=== PATIENT | male | born 1950 | race African-American/Black ===

== ENCOUNTER 2017-06-06 13:17 | Inpatient (IN) | payer OTHER ==
[2017-06-06 16:16] VITALS: BMI 20.7
--- NOTE | 2017-06-06 16:50 | HP ---
CIWA Score - CIWA Score Nausea/Vomitin Muscle Tremors: 3 Anxiety: 3 Agitation: 3 Paroxysmal Sweats: 1-Minimal Palms Moist Orientation: 0-Oriented Tacttile Disturbances: 2-Mild Itch/Numbness/Burn Auditory Disturbances: 2-Mild Harshness/Frighten Visual Disturbances: 1-Very Mild Sensitivity Headache: 2-Mild CIWA-Ar Total Score: 20 Admission ROS BHS - HPI Chief Complaint: I NEED HELP FROM ALCOHOL,XANAX AND COCAINE DEPENDENCE Allergies/Adverse Reactions: Allergies Allergy/AdvReac Type Severity Reaction Status Date / Time banana Allergy Severe Swelling Verified 06/06/17 16:26 History of Present Illness: THIS 67 YEARS OLD WITH ALCOHOL,COCAINE AND XANAX DEPENDENCE,SEEKING DETOX,LAST TREATMENT [facility] 03/19 MULTIPLE MEDICAL PROBLEMS TYPE 2 DM,HTN,HEPATITIS C TREATED, S/P LEFT INGUINAL HERNIA REPAIR LONGEST PERIOD OF SOBRIETY 10 YEARS - Ebola screening Have you traveled outside of the country in the last 21 days: No Have you had contact with anyone from an Ebola affected area: No Have you been sick,other than usual withdrawal symptoms: No Do you have a fever: No - Review of Systems Constitutional: Loss of Appetite, Malaise, Night Sweats, Changes in sleep, Weakness, Unintentional Wgt. Loss EENT: reports: Tearing, Nose Congestion Respiratory: reports: No Symptoms reported Cardiac: reports: No Symptoms Reported GI: reports: Diarrhea, Nausea, Vomiting, Abdominal cramping Musculoskeletal: reports: Back Pain, Muscle Pain Integumentary: reports: Dryness Neuro: reports: Headache, Tremors Endocrine: reports: No Symptoms Reported Hematology: reports: No Symptoms Reported Psychiatric: reports: No Sypmtoms Reported, Judgement Intact, Mood/Affect Appropiate, Orientated x3, Depressed Patient History - Patient Medical History Hx Anemia: No Hx Asthma: No Hx Chronic Obstructive Pulmonary Disease (COPD): No Hx Cancer: No Hx Cardiac Disorders: No Hx Hypertension: Yes (on meds.) Hx Hypercholesterolemia: No Hx Pacemaker: No HX Cerebrovascular Accident: No Hx Seizures: No Hx Diabetes: Yes (Type II) Hx Gastrointestinal Disorders: No Hx Liver Disease: No Hx Genitourinary Disorders: No Hx Sexually Transmitted Disorders: No Hx Renal Disease (ESRD): No Hx Thyroid Disease: No Hx Human Immunodeficiency Virus (HIV): No (LAST 03/19 NEGATIVE) Hx Hepatitis C: Yes (TREATED) Hx Depression: Yes Hx Suicide Attempt: No Hx Bipolar Disorder: No Hx Schizophrenia: No Other Medical History: N SUICIAL,NO HMICIDAL - Patient Surgical History Past Surgical History: Yes Hx Abdominal Surgery: Yes Other Surgical History: LEFT inguinal hernia repair 2004 - PPD History Previous Implant?: Yes Documented Results: Positive w/o proof Implanted On Prior [facility] Admission?: No PPD to be Administered?: No - Smoking Cessation Smoking history: Current every day smoker Have you smoked in the past 12 months: Yes Aproximately how many cigarettes per day: 5 Hx Chewing Tobacco Use: No Initiated information on smoking cessation: Yes 'Breaking Loose' booklet given: 06/06/17 - Substance & Tx. History Hx Alcohol Use: Yes Hx Substance Use: Yes Substance Use Type: Alcohol, Cocaine Hx Substance Use Treatment: Yes (JULEE NOYOLA 03/19) - Substances Abused Alcohol Route: Oral Frequency: Daily Amount used: 6pk beer Age of first use: 29 Date of Last Use: 06/05/17 Alprazolam (Xanax) Route: Oral Frequency: Daily Amount used: 6mg Age of first use: 54 Date of Last Use: 06/06/17 Crack Route: Smoking Frequency: Daily Amount used: $60 Age of first use: 62 Date of Last Use: 06/05/17 Family Disease History - Family Disease History Family Disease History: Other: Father (ALCOHOL ), Mother (), Sister (ALCOHOL,) Admission Physical Exam S - Vital Signs Vital Signs: Vital Signs - 24 hr 06/06/17 16:14 Temperature 96.2 F L Pulse Rate 59 L Respiratory 20 Rate Blood Pressure 101/60 - Physical General Appearance: Yes: Moderate Distress, Tremorous, Irritable, Sweating, Anxious HEENTM: Yes: Normal ENT Inspection, SANDOVAL, Pharynx Normal Respiratory: Yes: Lungs Clear, Normal Breath Sounds, No Respiratory Distress Neck: Yes: Within Normal Limits, Supple, Trachea in good position Breast: Yes: Within Normal Limits Cardiology: Yes: Within Normal Limits, Regular Rhythm, Regular Rate, S1, S2 Abdominal: Yes: Normal Bowel Sounds, Non Tender, Flat, Soft, Surgical Scar ( SCAR LEFT INGUINAL HERNIA) Genitourinary: Yes: Within Normal Limits Back: Yes: Muscle Spasm Musculoskeletal: Yes: full range of Motion, Back pain, Muscle Pain Extremities: Yes: Tremors Neurological: Yes: 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 intact, Fully Oriented, Alert, Motor Strength 5/5 Integumentary: Yes: Dry Lymphatic: Yes: Within Normal Limits - Diagnostic (1) Alcohol dependence with uncomplicated withdrawal Current Visit: Yes Status: Acute (2) Cocaine dependence Current Visit: Yes Status: Chronic (3) Uncomplicated sedative, hypnotic or anxiolytic withdrawal Current Visit: Yes Status: Acute (4) Methadone maintenance therapy patient Current Visit: Yes Status: Chronic (5) S/P left inguinal hernia repair Current Visit: Yes Status: Resolved (6) Depression Current Visit: Yes Status: Acute (7) Weight loss Current Visit: Yes Status: Acute Cleared for Admission [facility] - Detox or Rehab [facility] Level of Care: Medically Managed Detox Regimen/Protocol: Librium [facility] Breath Alcohol Content Breath Alcohol Content: 0 Urine Drug Screen - Results Drug Screen Negative: No Urine Drug Screen Results: [place]-Cocaine, OPI-Opiates, BZO-Benzodiazepines, MTD- Methadone
[2017-06-06] MEDS ORDERED: P-EPHED 60MG/TRIPROLIDI 2.5MG TABLET PO PRN (17:01)
[2017-06-06] MEDS ORDERED: LOPERAMIDE HCL 2 MG CAPSULE PO PRN (17:01)
[2017-06-06] MEDS ORDERED: MAGNESIUM CITRATE 300 ML BOTTLE PO PRN (17:01)
[2017-06-06] MEDS ORDERED: MENTHOL/PHENOL 1 EACH UD MM PRN (17:01)
[2017-06-06] MEDS ORDERED: MAGNESIUM HYDROX 2400MG/30ML ORAL SUSPENSION 30 ML CUP PO PRN (17:01)
[2017-06-06] MEDS ORDERED: guaiFENesin/D-METHORPHAN HB 10 ML UNIT-DOSE CUPS PO PRN (17:01)
[2017-06-06] MEDS ORDERED: NICOTINE POLACRILEX 2 MG GUM BUC PRN (17:01)
[2017-06-06] MEDS ORDERED: diazePAM 5 MG TABLET PO PRN (17:01)
[2017-06-06] MEDS ORDERED: MAG HYDROX/AL HYDROX/SIMETH 30 ML UNIT-DOSE CUP PO PRN (17:01)
[2017-06-06] MEDS ORDERED: hydrOXYzine PAMOATE 50 MG CAPSULE (FP) PO PRN (17:01)
[2017-06-06] MEDS ORDERED: diazePAM 5 MG TABLET PO ONE (18:30)
[2017-06-06 21:03] LABS: URINE APPEARANCE CLEAR; URINE BILIRUBIN NEGATIVE (NEGATIVE); URINE BLOOD NEGATIVE (NEGATIVE); URINE COLOR YELLOW; URINE GLUCOSE (UA) NEGATIVE (NEGATIVE); URINE KETONE NEGATIVE (NEGATIVE); URINE LEUK ESTERASE TRACE (NEGATIVE); URINE NITRITE NEGATIVE (NEGATIVE); URINE PROTEIN NEGATIVE (NEGATIVE); URINE UROBILINOGEN NEGATIVE mg/dL (0.2-1.0)
[2017-06-06 21:08] LABS: URINE HYALINE CAST 3 /lpf; URINE MUCUS RARE; URINE RBC <1 /hpf (0-3); URINE WBC 2 /hpf (3-5)
[2017-06-06] MEDS: THIAMINE HCL 100 MG TABLET (FP) PO SCH (22:14)
[2017-06-06] MEDS: diazePAM 5 MG TABLET PO SCH (22:14)
[2017-06-07] MEDS: diazePAM 5 MG TABLET PO SCH ×3 (05:15→22:09)
[2017-06-07] MEDS ORDERED: metFORMIN HCL 500 MG TABLET (FP) PO SCH (07:00)
[2017-06-07] MEDS ORDERED: METHADONE HCL 40 MG DISPERSABLE TABLET PO SCH (08:45)
[2017-06-07] MEDS: METHADONE 120 MG, METHADONE 30 MG PO SCH (09:14)
[2017-06-07] MEDS ORDERED: METHADONE HCL 10 MG TABLET ONE (09:14)
[2017-06-07] MEDS ORDERED: METHADONE HCL 40 MG DISPERSABLE TABLET ONE (09:14)
--- NOTE | 2017-06-07 09:52 | CONSULT ---
[facility] Psychiatric Consult - Data Date of interview: 06/07/17 Admission source: [facility] Identifying data: This is 67 years old AA single male,residing alone,supported by [facility] admitted to [address] [place] [address] for Cocaine,Anxiolytic dependence.Opioid dependence on remission (MMTP 150 mg po daily). Substance Abuse History: Reports starting Xanax 1 mg po daily about 8 years ago, Cocaine /Crack since 10 years ago spending $100 daily.MMTP 150 mg po daily. Medical History: H/O left inquinal hernia repair. Psychiatric History: Denies previous psychiatric history,no psychiatric hospitalizations,no suicidal attempts.patient reports feeling depressed on and off recently since he lost his sister who from Cancer a few months ago.Patient is not willing to start antidepressants at this time.Psychotherapy provided. Physical/Sexual Abuse/Trauma History: denies Mental Status Exam - Mental Status Exam Alert and Oriented to: Time, Place, Person Cognitive Function: Grossly Intact Patient Appearance: Well Groomed Mood: Sad Affect: Mood Congruent Patient Behavior: Appropriate, Cooperative Speech Pattern: Clear Voice Loudness: Normal Thought Process: Goal Oriented Thought Disorder: Not Present Hallucinations: Denies Suicidal Ideation: Denies Homicidal Ideation: Denies Insight/Judgement: Fair Sleep: Fair Appetite: Fair Muscle strength/Tone: Normal Gait/Station: Normal Psychiatric Findings - Problem List ([place] 1, 2,3) (1) Alcohol dependence with uncomplicated withdrawal Current Visit: Yes Status: Acute (2) Cocaine dependence Current Visit: Yes Status: Chronic (3) Methadone maintenance therapy patient Current Visit: Yes Status: Chronic (4) S/P left inguinal hernia repair Current Visit: Yes Status: Resolved (5) Weight loss Current Visit: Yes Status: Acute (6) Substance induced mood disorder Current Visit: Yes Status: Chronic - Initial Treatment Plan Initial Treatment Plan: Vistaril 50 mg po prn,Benadryl 50 mg po hs. Will monitor progress.consider antidepressants if needed.
[2017-06-07] MEDS ORDERED: PATIENT'S OWN MEDICATION (NON-FORMULARY) (Metformin Hcl [Glucophage] 1,000 MG) PO SCH (10:00)
[2017-06-07] MEDS: PRENATAL VITAMINS W/ FOLIC ACID TABLET (FP) PO SCH (10:12)
[2017-06-07] MEDS: LISINOPRIL 10 MG TABLET (FP) PO SCH (10:13)
--- NOTE | 2017-06-07 10:17 | PN ---
S CIWA - CIWA Score Nausea/Vomitin Muscle Tremors: 3 Anxiety: 3 Agitation: 2 Paroxysmal Sweats: 1-Minimal Palms Moist Orientation: 0-Oriented Tacttile Disturbances: 1-Very Mild Itch/Numbness Auditory Disturbances: 1-Very Mild Visual Disturbances: 1-Very Mild Sensitivity Headache: 2-Mild CIWA-Ar Total Score: 17 BHS Progress Note (SOAP) Subjective: ALERT,IRRITABLE,ANXIOUS,INTERRUPTED SLEEP,TREMOR Objective: 06/07/17 10:11 Vital Signs Temperature 98.8 F 06/07/17 10:05 Pulse Rate 71 06/07/17 10:05 Respiratory Rate 18 06/07/17 10:05 Blood Pressure 110/58 06/07/17 10:05 O2 Sat by Pulse Oximetry (%) EKG NSR Laboratory Last Values POC Glucometer 74 UNITS (()) 06/07/17 05:18 Urine Color Yellow 06/06/17 18:46 Urine Appearance Clear 06/06/17 18:46 Urine pH 5.0 (5.0-8.0) 06/06/17 18:46 Ur Specific [place] 1.020 (1.005-1.025) 06/06/17 18:46 Urine Protein Negative (NEGATIVE) 06/06/17 18:46 Urine Glucose (UA) Negative (NEGATIVE) 06/06/17 18:46 Urine Ketones Negative (NEGATIVE) 06/06/17 18:46 Urine Blood Negative (NEGATIVE) 06/06/17 18:46 Urine Nitrite Negative (NEGATIVE) 06/06/17 18:46 Urine Bilirubin Negative (NEGATIVE) 06/06/17 18:46 Urine Urobilinogen Negative mg/dL (0.2-1.0) 06/06/17 18:46 Urine RBC <1 /hpf (0-3) 06/06/17 18:46 Urine WBC 2 /hpf (3-5) 06/06/17 18:46 Ur Epithelial Cells Rare /hpf (FEW) 06/06/17 18:46 Hyaline Casts 3 /lpf 06/06/17 18:46 Urine Mucus Rare 06/06/17 18:46 LABS PENDING Assessment: 06/07/17 10:12 WITHDRAWAL SYMPTOM Plan: CONTINUE DETOX BGM MONITORING,METFORMIN 500 MGS PO DAILY STATED BY PATIENT
[2017-06-07 10:20] LABS: MCH 27.2 pg (25.7-33.7); MCHC 31.2 g/dl (32.0-35.9); MEAN CELL VOLUME 87.2 fl (80-96); MEAN PLT VOLUME 7.2 fl (7.5-11.1); PLATELET COUNT 232 K/MM3 (134-434); RDW 13.6 % (11.9-15.9)
[2017-06-07 11:21] LABS: ALBUMIN 3.4 g/dl (3.4-5.0); ALK PHOS 56 U/L (45-117); ANION GAP 6 (8-16); CALCIUM 8.7 mg/dL (8.5-10.1); CO2 29 mmol/L (21-32); CREATININE 1.2 mg/dL (0.7-1.3); GLUCOSE,RANDOM 62 mg/dL (74-106); SGOT/AST 14 U/L (15-37); SGPT/ALT 15 U/L (12-78); TOT PROT 7.1 g/dl (6.4-8.2)
[2017-06-07 12:37] LABS: SICKLE CELL SCREEN NEGATIVE (NEGATIVE)
--- NOTE | 2017-06-07 14:22 | EKG ---
Test Reason : Blood Pressure : / mmHG Vent. Rate : 066 BPM Atrial Rate : 066 BPM P-R Int : 138 ms QRS Dur : 070 ms QT Int : 396 ms P-R-T Axes : 046 029 073 degrees QTc Int : 415 ms NORMAL SINUS RHYTHM NORMAL ECG NO PREVIOUS ECGS AVAILABLE Confirmed by JOCELYNN CHAVZE MD ([id number]) on 06/07/2017 2:22:23 PM Referred By: Confirmed By:JOCELYNN CHAVEZ MD
[2017-06-07] MEDS: THIAMINE HCL 100 MG TABLET (FP) PO SCH (22:09)
[2017-06-07] MEDS: diphenhydrAMINE HCL 50 MG CAPSULE PO PRN (22:09)
[2017-06-08] MEDS ORDERED: METHADONE HCL 40 MG DISPERSABLE TABLET ONE (04:31)
[2017-06-08] MEDS ORDERED: METHADONE HCL 10 MG TABLET ONE (04:31)
[2017-06-08] MEDS: METHADONE 120 MG, METHADONE 30 MG PO SCH (05:53)
[2017-06-08] MEDS: LISINOPRIL 10 MG TABLET (FP) PO SCH (10:05)
[2017-06-08] MEDS: PRENATAL VITAMINS W/ FOLIC ACID TABLET (FP) PO SCH (10:05)
[2017-06-08] MEDS: metFORMIN HCL 500 MG TABLET (FP) PO SCH (10:05)
[2017-06-08] MEDS: diazePAM 5 MG TABLET PO SCH ×2 (10:06→22:03)
[2017-06-08] MEDS: IBUPROFEN 400 MG TABLET (FP) PO PRN ×2 (10:08→18:06)
--- NOTE | 2017-06-08 10:08 | PN ---
S CIWA - CIWA Score Nausea/Vomitin Muscle Tremors: 2 Anxiety: 3 Agitation: 2 Paroxysmal Sweats: 1-Minimal Palms Moist Orientation: 0-Oriented Tacttile Disturbances: 1-Very Mild Itch/Numbness Auditory Disturbances: 1-Very Mild Visual Disturbances: 0-None Headache: 2-Mild CIWA-Ar Total Score: 15 BHS Progress Note (SOAP) Subjective: alert,irritable,anxious,interrupted sleep,pain in the body,legs and back Objective: 06/08/17 10:06 Vital Signs Temperature 98.2 F 06/08/17 07:43 Pulse Rate 57 L 06/08/17 07:43 Respiratory Rate 18 06/08/17 07:43 Blood Pressure 122/68 06/08/17 07:43 O2 Sat by Pulse Oximetry (%) 06/08/17 10:06 06/08/17 10:07 06/08/17 10:07 Laboratory Last Values WBC 6.0 K/mm3 (4.0-10.0) 06/07/17 07:00 RBC 4.26 M/mm3 (4.00-5.60) 06/07/17 07:00 Hgb 11.6 GM/dL (11.7-16.9) L 06/07/17 07:00 Hct 37.1 % (35.4-49) 06/07/17 07:00 MCV 87.2 fl (80-96) 06/07/17 07:00 MCH 27.2 pg (25.7-33.7) 06/07/17 07:00 MCHC 31.2 g/dl (32.0-35.9) L 06/07/17 07:00 RDW 13.6 % (11.9-15.9) 06/07/17 07:00 Plt Count 232 K/MM3 (134-434) 06/07/17 07:00 MPV 7.2 fl (7.5-11.1) L 06/07/17 07:00 Sickle Cell Screen Negative (NEGATIVE) 06/07/17 07:00 Sodium 139 mmol/L (136-145) 06/07/17 07:00 Potassium 5.3 mmol/L (3.5-5.1) H 06/07/17 07:00 Chloride 104 mmol/L (98-107) 06/07/17 07:00 Carbon Dioxide 29 mmol/L (21-32) 06/07/17 07:00 Anion Gap 6 (8-16) L 06/07/17 07:00 BUN 17 mg/dL (7-18) 06/07/17 07:00 Creatinine 1.2 mg/dL (0.7-1.3) 06/07/17 07:00 Creat Clearance w eGFR > 60 (>60) 06/07/17 07:00 POC Glucometer 86 UNITS (()) 06/08/17 07:21 Random Glucose 62 mg/dL (74-106) L 06/07/17 07:00 Calcium 8.7 mg/dL (8.5-10.1) 06/07/17 07:00 Total Bilirubin 1.0 mg/dL (0.2-1.0) 06/07/17 07:00 AST 14 U/L (15-37) L 06/07/17 07:00 ALT 15 U/L (12-78) 06/07/17 07:00 Alkaline Phosphatase 56 U/L (45-117) 06/07/17 07:00 Total Protein 7.1 g/dl (6.4-8.2) 06/07/17 07:00 Albumin 3.4 g/dl (3.4-5.0) 06/07/17 07:00 Urine Color Yellow 06/06/17 18:46 Urine Appearance Clear 06/06/17 18:46 Urine pH 5.0 (5.0-8.0) 06/06/17 18:46 Ur Specific [place] 1.020 (1.005-1.025) 06/06/17 18:46 Urine Protein Negative (NEGATIVE) 06/06/17 18:46 Urine Glucose (UA) Negative (NEGATIVE) 06/06/17 18:46 Urine Ketones Negative (NEGATIVE) 06/06/17 18:46 Urine Blood Negative (NEGATIVE) 06/06/17 18:46 Urine Nitrite Negative (NEGATIVE) 06/06/17 18:46 Urine Bilirubin Negative (NEGATIVE) 06/06/17 18:46 Urine Urobilinogen Negative mg/dL (0.2-1.0) 06/06/17 18:46 Urine RBC <1 /hpf (0-3) 06/06/17 18:46 Urine WBC 2 /hpf (3-5) 06/06/17 18:46 Ur Epithelial Cells Rare /hpf (FEW) 06/06/17 18:46 Hyaline Casts 3 /lpf 06/06/17 18:46 Urine Mucus Rare 06/06/17 18:46 RPR Titer Nonreactive (NONREACTIVE) 06/07/17 07:00 Assessment: 06/08/17 10:07 withdrawal symptom 06/08/17 10:07 Plan: continue detox,flexeril 10 mgs po tid prn
[2017-06-08] MEDS: CYCLOBENZAPRINE HCL 10 MG TABLET (FP) PO PRN (12:16)
[2017-06-08] MEDS: diphenhydrAMINE HCL 50 MG CAPSULE PO PRN (22:05)
[2017-06-08] MEDS: THIAMINE HCL 100 MG TABLET (FP) PO SCH (22:05)
[2017-06-09] MEDS ORDERED: METHADONE HCL 40 MG DISPERSABLE TABLET ONE (05:09)
[2017-06-09] MEDS ORDERED: METHADONE HCL 10 MG TABLET ONE (05:10)
[2017-06-09] MEDS: METHADONE 120 MG, METHADONE 30 MG PO SCH (05:24)
[2017-06-09] MEDS: diazePAM 5 MG TABLET PO SCH ×2 (10:15→22:04)
[2017-06-09] MEDS: PRENATAL VITAMINS W/ FOLIC ACID TABLET (FP) PO SCH (10:22)
[2017-06-09] MEDS: LISINOPRIL 10 MG TABLET (FP) PO SCH (10:23)
[2017-06-09] MEDS: metFORMIN HCL 500 MG TABLET (FP) PO SCH (10:23)
[2017-06-09] MEDS: IBUPROFEN 400 MG TABLET (FP) PO PRN (12:20)
[2017-06-09] MEDS ORDERED: SODIUM POLYSTYRENE SULFONATE 15 GM/60 ML BOTTLE PO ONE (15:11)
--- NOTE | 2017-06-09 15:24 | PN ---
BHS Progress Note (SOAP) Subjective: Sweating,interrupted sleep,restless. Objective: 06/09/17 15:22 Vital Signs - 8 hr 06/09/17 06/09/17 10:00 13:43 Temperature 97.7 F 98.4 F Pulse Rate 63 62 Respiratory 18 18 Rate Blood Pressure 114/66 119/65 Laboratory Last Values WBC 6.0 K/mm3 (4.0-10.0) 06/07/17 07:00 RBC 4.26 M/mm3 (4.00-5.60) 06/07/17 07:00 Hgb 11.6 GM/dL (11.7-16.9) L 06/07/17 07:00 Hct 37.1 % (35.4-49) 06/07/17 07:00 MCV 87.2 fl (80-96) 06/07/17 07:00 MCH 27.2 pg (25.7-33.7) 06/07/17 07:00 MCHC 31.2 g/dl (32.0-35.9) L 06/07/17 07:00 RDW 13.6 % (11.9-15.9) 06/07/17 07:00 Plt Count 232 K/MM3 (134-434) 06/07/17 07:00 MPV 7.2 fl (7.5-11.1) L 06/07/17 07:00 Sickle Cell Screen Negative (NEGATIVE) 06/07/17 07:00 Sodium 139 mmol/L (136-145) 06/07/17 07:00 Potassium 5.3 mmol/L (3.5-5.1) H 06/07/17 07:00 Chloride 104 mmol/L (98-107) 06/07/17 07:00 Carbon Dioxide 29 mmol/L (21-32) 06/07/17 07:00 Anion Gap 6 (8-16) L 06/07/17 07:00 BUN 17 mg/dL (7-18) 06/07/17 07:00 Creatinine 1.2 mg/dL (0.7-1.3) 06/07/17 07:00 Creat Clearance w eGFR > 60 (>60) 06/07/17 07:00 POC Glucometer 74 UNITS (()) 06/09/17 05:26 Random Glucose 62 mg/dL (74-106) L 06/07/17 07:00 Calcium 8.7 mg/dL (8.5-10.1) 06/07/17 07:00 Total Bilirubin 1.0 mg/dL (0.2-1.0) 06/07/17 07:00 AST 14 U/L (15-37) L 06/07/17 07:00 ALT 15 U/L (12-78) 06/07/17 07:00 Alkaline Phosphatase 56 U/L (45-117) 06/07/17 07:00 Total Protein 7.1 g/dl (6.4-8.2) 06/07/17 07:00 Albumin 3.4 g/dl (3.4-5.0) 06/07/17 07:00 Urine Color Yellow 06/06/17 18:46 Urine Appearance Clear 06/06/17 18:46 Urine pH 5.0 (5.0-8.0) 06/06/17 18:46 Ur Specific [place] 1.020 (1.005-1.025) 06/06/17 18:46 Urine Protein Negative (NEGATIVE) 06/06/17 18:46 Urine Glucose (UA) Negative (NEGATIVE) 06/06/17 18:46 Urine Ketones Negative (NEGATIVE) 06/06/17 18:46 Urine Blood Negative (NEGATIVE) 06/06/17 18:46 Urine Nitrite Negative (NEGATIVE) 06/06/17 18:46 Urine Bilirubin Negative (NEGATIVE) 06/06/17 18:46 Urine Urobilinogen Negative mg/dL (0.2-1.0) 06/06/17 18:46 Urine RBC <1 /hpf (0-3) 06/06/17 18:46 Urine WBC 2 /hpf (3-5) 06/06/17 18:46 Ur Epithelial Cells Rare /hpf (FEW) 06/06/17 18:46 Hyaline Casts 3 /lpf 06/06/17 18:46 Urine Mucus Rare 06/06/17 18:46 RPR Titer Nonreactive (NONREACTIVE) 06/07/17 07:00 labs noted Assessment: 06/09/17 15:23 Withdrawal sx. Mild hyperkalemia Plan: Continue detox Increase PO fluid
[2017-06-09] MEDS: CYCLOBENZAPRINE HCL 10 MG TABLET (FP) PO PRN ×2 (17:29→22:04)
[2017-06-09] MEDS: ACETAMINOPHEN 325 MG TABLET (FP) PO PRN (17:30)
[2017-06-09] MEDS: diphenhydrAMINE HCL 50 MG CAPSULE PO PRN (22:04)
[2017-06-09] MEDS: THIAMINE HCL 100 MG TABLET (FP) PO SCH (22:04)
[2017-06-10] MEDS ORDERED: METHADONE HCL 10 MG TABLET ONE (05:17)
[2017-06-10] MEDS ORDERED: METHADONE HCL 40 MG DISPERSABLE TABLET ONE (05:17)
[2017-06-10] MEDS: METHADONE 120 MG, METHADONE 30 MG PO SCH (05:56)
[2017-06-10] MEDS: metFORMIN HCL 500 MG TABLET (FP) PO SCH (06:33)
[2017-06-10] MEDS ORDERED: diazePAM 5 MG TABLET PO SCH (10:00)
[2017-06-10] MEDS: PRENATAL VITAMINS W/ FOLIC ACID TABLET (FP) PO SCH (10:40)
[2017-06-10] MEDS: LISINOPRIL 10 MG TABLET (FP) PO SCH (10:40)
--- NOTE | 2017-06-10 10:43 | PN ---
S Progress Note (SOAP) Subjective: ALERT,IRRITABLE,FEEL WEAK,IRRITABLE,INTERRUPTED SLEEP Objective: 06/10/17 10:42 Vital Signs Temperature 97.3 F L 06/10/17 10:02 Pulse Rate 68 06/10/17 10:02 Respiratory Rate 18 06/10/17 10:02 Blood Pressure 130/66 06/10/17 10:02 O2 Sat by Pulse Oximetry (%) Assessment: 06/10/17 10:42 WITHDRAWAL SYMPTOM Plan: CONTINUE DETOX,ENCOURAGE ORAL FLUID,REPEAT K PENDING,KAYEXYLATE 15 GRAMS PO ORDERED POSSIBLE DISCHARGE IN AM
[2017-06-10 10:44] LABS: ANION GAP 9 (8-16); CALCIUM 9.7 mg/dL (8.5-10.1); CO2 28 mmol/L (21-32); CREATININE 1.3 mg/dL (0.7-1.3); GLUCOSE,RANDOM 107 mg/dL (74-106)
[2017-06-10] MEDS ORDERED: SODIUM POLYSTYRENE SULFONATE 15 GM/60 ML BOTTLE PO ONE (11:30)
[2017-06-10] MEDS: ACETAMINOPHEN 325 MG TABLET (FP) PO PRN (15:23)
[2017-06-10] MEDS: THIAMINE HCL 100 MG TABLET (FP) PO SCH (22:20)
[2017-06-10] MEDS: diphenhydrAMINE HCL 50 MG CAPSULE PO PRN (22:20)
[2017-06-10] MEDS: CYCLOBENZAPRINE HCL 10 MG TABLET (FP) PO PRN (22:20)
[2017-06-11] MEDS ORDERED: METHADONE HCL 40 MG DISPERSABLE TABLET ONE (04:35)
[2017-06-11] MEDS ORDERED: METHADONE HCL 10 MG TABLET ONE (04:35)
[2017-06-11] MEDS: METHADONE 120 MG, METHADONE 30 MG PO SCH (05:18)
[2017-06-11] MEDS: metFORMIN HCL 500 MG TABLET (FP) PO SCH (08:24)
--- NOTE | 2017-06-11 08:42 | DS ---
[facility] Detox Discharge Summary Admission Date: 06/06/17 Discharge Date: 06/11/17 - History Present History: Alcohol Dependence, Cocaine Dependence, Sedative Dependence, MMTP - Physical Exam Results Vital Signs: Vital Signs Temperature 97.7 F 06/11/17 06:45 Pulse Rate 61 06/11/17 06:45 Respiratory Rate 16 06/11/17 06:45 Blood Pressure 131/72 06/11/17 06:45 O2 Sat by Pulse Oximetry (%) - Treatment Hospital Course: Detox Protocol Followed, Detoxed Safely, Responded well, Discharged Condition Good, Rehab Referral Accepted - Medication Discharge Medications: Ambulatory Orders Lisinopril [Prinivil] 10 mg PO DAILY 06/06/17 Metformin HCl [Glucophage] 1,000 mg PO DAILY 06/06/17 - Diagnosis (1) Alcohol dependence with uncomplicated withdrawal Current Visit: Yes Status: Chronic (2) DM2 (diabetes mellitus, type 2) Current Visit: Yes Status: Chronic Qualifiers: Diabetes mellitus complication status: without complication (3) Depression Current Visit: Yes Status: Acute (4) Uncomplicated sedative, hypnotic or anxiolytic withdrawal Current Visit: Yes Status: Chronic (5) Weight loss Current Visit: Yes Status: Chronic (6) Cocaine dependence Current Visit: Yes Status: Acute Qualifiers: Substance use status: uncomplicated Qualified Code(s): F14.20 - Cocaine dependence, uncomplicated; F14.20 - Cocaine dependence, uncomplicated; F14.20 - Cocaine dependence, uncomplicated (7) Methadone maintenance therapy patient Current Visit: Yes Status: Chronic (8) Substance induced mood disorder Current Visit: Yes Status: Chronic (9) S/P left inguinal hernia repair Current Visit: Yes Status: Resolved - AMA Did Patient Leave Against Medical Advice: No
[2017-06-11] MEDS: PRENATAL VITAMINS W/ FOLIC ACID TABLET (FP) PO SCH (09:46)
[2017-06-11] MEDS: LISINOPRIL 10 MG TABLET (FP) PO SCH (09:46)
[2017-06-11] MEDS: IBUPROFEN 400 MG TABLET (FP) PO PRN (09:49)
[2017-06-11 09:56] VITALS: BP 132/75; PULSE 75; TEMP 98.1
== END 2017-06-11 10:07 | disposition home or self-care (01) | DRG 897 ==
LOC: YASAS 13:17 → Y6N 17:51
PROVIDERS: ADMIT Internal Medicine; ATTEND Internal Medicine
PROC: HZ2ZZZZ Detoxification Services for Substance Abuse Treatment (ICD-10-PCS; principal; 2017-06-06)
DX: F13.230 Sedative, hypnotic or anxiolytic dependence with withdrawal, uncomplicated (principal); F11.20 Opioid dependence, uncomplicated; F10.230 Alcohol dependence with withdrawal, uncomplicated; F12.20 Cannabis dependence, uncomplicated; F17.210 Nicotine dependence, cigarettes, uncomplicated; F19.24 Other psychoactive substance dependence with psychoactive substance-induced mood disorder; F32.9 Major depressive disorder, single episode, unspecified; E11.9 Type 2 diabetes mellitus without complications; E78.5 Hyperlipidemia, unspecified; Z87.898 Personal history of other specified conditions
CPT/HCPCS: 36415; 71020-TC; 80048; 80053; 81003; 81015; 85027; 85660; 86593; 93005; 93010